=== PATIENT | female | born 1990 | race Caucasian/White ===

== ENCOUNTER 2018-03-23 11:06 | Day surgery (SDC) | payer BC ==
[~2018-03-23] VITALS: Ht 162.6 cm; Wt 78.6 kg
[2018-03-23] VITALS (21 sets, daily range): BP systolic 112–139; BP diastolic 65–90; PULSE 72–92; RESP 13–27; Ht 162.6 cm; Wt 78.6 kg
[~2018-03-23 11:06] MED LIST: CLINDAMYCIN 600 MG/D5W (PMX) 50 ML IVPB SCH; ROCURONIUM 50 MG INJ ONE; SOD CHLORIDE 0.9% 1,000 ML IV ONE
--- NOTE | 2018-03-23 12:25 | NUR ---
PT COMMUNICATES THAT SHE USUALLY GET A 'SHOT' AFTER SURGERY BECAUSE SHE IS RH NEGATIVE. WILL NOTIFY PER MOTHER'S REQUEST.
[2018-03-23] MEDS ORDERED: BUPIVACAINE 0.5%/EPI (SDV) 30 ML INJ ONE (13:50)
--- NOTE | 2018-03-23 14:08 | PREAC ---
Date/Time of Note Date/Time of Note DATE: 03/23/18 TIME: 14:07 Anesthesia Eval and Record Evaluation Time Pre-Procedure Interview DATE: 03/23/18 TIME: 14:07 Age 27 Sex female NPO: 8 hrs Preoperative diagnosis Ventral Hernia Planned procedure open Ventral hernia Repair Past Medical History Past Medical History: None Surgery & Anesthesia Issues No known issue Meds Anticoagulation: No Beta Matilde within 24 hr: No Reason Beta Matilde not given: Pt. not on B-Matilde Discontinued Reported Medications [None] No Conflict Check 10/04/11 Current Medications Clindamycin HCl/ Dextrose 50 ml @ 100 mls/hr PRE-OP IVPB ; Start 03/23/18 at 06:00; Stop 03/23/18 at 18:00 Sodium Chloride 1,000 ml @ 75 mls/hr [id number] ONCE IV ; Start 03/23/18 at 06:00; Stop 03/23/18 at 19:19 Meds reviewed: Yes Allergies Coded Allergies: Penicillins (Unverified Allergy, Severe, RASHES, 03/23/18) PER PT Allergies Reviewed: Yes Labs/Studies Labs Reviewed: Reviewed by anesthesiologist test: Negative Studies: ECG Pre-procedure Exam Last vitals Vital Signs Date Temp Pulse Resp B/P (MAP) Pulse Ox O2 O2 Flow FiO2 Time Delivery Rate 03/23/18 96.7 83 16 125/87 99 Room Air 11:24 (100) Airway: Adequate mouth opening, Adequate thyromental dist Mallampati: Mallampati II Teeth: Normal Lung: Normal Heart: Normal ASA Physical Status ASA physical status: 2 Emergency: None Planned Anesthetic General/MAC: LMA Planned Pain Management Parenteral pain med, Local by surgeon Pre-operative Attestations Prior to commencing anesthesia and surgery, the patient was re-evaluated, there was verification of: *The patient's identity *The results of appropriate recent lab work and preoperative vital signs *The above evaluation not changing prior to induction *Anesthetic plan, risk benefits, alternative and complications discussed with patient/family; questions answered; patient/family understands, accepts and wishes to proceed. DIPTI HERNANDEZ MD Mar 23, 2018 14:08
[2018-03-23] MEDS ORDERED: MIDAZOLAM 1 MG/ML 2 ML INJ ONE (14:21)
[2018-03-23] MEDS ORDERED: LIDOCAINE 2% (SDV) 5 ML INJ ONE (15:21)
[2018-03-23] MEDS ORDERED: PROPOFOL 20 ML ONE (15:21)
[2018-03-23] MEDS ORDERED: CEFAZOLIN 1 GM INJ ONE (15:21)
[2018-03-23] MEDS ORDERED: ONDANSETRON 4 MG INJ ONE (15:21)
[2018-03-23] MEDS ORDERED: KETOROLAC 30 MG INJ IV PRN (15:30)
[2018-03-23] MEDS ORDERED: IBUPROFEN 600 MG TAB PO PRN (15:30)
[2018-03-23] MEDS ORDERED: HYDROCODONE/APAP (5/325) TAB PO PRN ×2 (15:30)
[2018-03-23] MEDS ORDERED: ONDANSETRON 4 MG INJ IV PRN ×2 (15:30→16:00)
--- NOTE | 2018-03-23 15:32 | OPR ---
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 She had clinical signs and symptoms of a ventral/umbilical hernia. She was scheduled for elective repair to prevent sequelae of hernia disease which include, but are not limited to: Incarceration and strangulation. All risks and benefits of the procedure including, but not limited to: Wound infection, excessive bleeding, postoperative seroma/hematoma formation, injury to intra-abdominal organs, hernia recurrence, chronic pain, etc. were all explained to the patient in full detail. Patient fully understood and wished to proceed with the procedure. Informed consent was obtained. Procedure Description Patient was brought to the operating room and placed supine on the operating t able. Bilateral sequential compression devices were placed on both lower extremities. A dose of broad-spectrum perioperative intravenous antibiotics was given. After the induction of smooth general anesthesia the patient's abdomen was prepped and draped in standard surgical fashion. After performance of the surgical timeout 0.5% Marcaine with epinephrine was injected around the area of the incision. An infraumbilical semicircular incision was then made using a 15 blade scalpel. It was carried down through the skin and the dermis. Blunt dissection was then done using Elif clamps to the level of the anterior rectus fascia. The hernia of the ventral abdominal wall involved the umbilicus. Therefore, the umbilicus was then encircled using a Elif clamp. A fat- containing umbilical/ventral hernia was identified. The umbilicus was then transected at its base and the sac dissected off of the umbilicus. The hernia contents were transected and passed off the field as specimen. A small Ethicon proceed ventral hernia patch was then used to repair the hernia defect. Its tails were secured to the fascia using interrupted 2-0 Novafil sutures. The mesh was soaked in antibiotic irrigation prior to insertion into the field. With the repair complete it was inspected and noted to be tension-free and hemostatic. The wound cavity was then irrigated with more antibiotic irrigation. The fascia was then reapproximated over the mesh using a #1 PDS suture in [id number] fashion. The umbilicus was then tacked back down to the fascia using interrupted 3-0 Vicryl suture. Incision was then closed in layers using interrupted 3-0 Vicryl sutures for the dermal layer. The skin was reapproximated using a running 4-0 Monocryl suture in subcuticular fashion. Incision was cleaned and Dermabond was applied. The patient was awoken from anesthesia and transported to the recovery room in stable condition. All counts were correct at the end of the case 2. MICHAEL GRAHAM MD Mar 23, 2018 15:32
--- NOTE | 2018-03-23 15:45 | PAC ---
Date/Time of Note Date/Time of Note DATE: 03/23/18 TIME: 15:44 Post-Anesthesia Notes Post-Anesthesia Note Last documented vital signs Vital Signs Date Temp Pulse Resp B/P (MAP) Pulse Ox O2 O2 Flow FiO2 Time Delivery Rate 03/23/18 96.7 83 16 125/87 99 Room Air 11:24 (100) Activity: WNL Respiratory function: WNL Cardiovascular function: WNL Mental status: Baseline Pain reasonably controlled: Yes Hydration appropriate: Yes Nausea/Vomiting absent: Yes Comments BP:134/84, pulse:82, spo2:100%, T:98,8, DIPTI HERNANDEZ MD Mar 23, 2018 15:45
[2018-03-23] MEDS ORDERED: HYDROmorphONE 1 MG/5 ML IV SYRINGE IV PRN (16:00)
[2018-03-23] MEDS ORDERED: MEPERIDINE 25 MG INJ IV PRN (16:00)
[2018-03-23] MEDS ORDERED: FENTAnyl 50 MCG/ML VIAL IV PRN (16:00)
[2018-03-23] MEDS ORDERED: METOCLOPRAMIDE 10 MG INJ IV PRN (16:00)
[2018-03-23] MEDS ORDERED: DIPHENHYDRAMINE 50 MG INJ IV PRN (16:00)
[2018-03-23] MEDS: HYDROmorphONE 1 MG/5 ML IV SYRINGE IV PRN ×2 (16:04→16:25)
--- NOTE | 2018-03-23 16:55 | NUR ---
pacu PT AWAKE ALERT ROOM AIR NO RESP DISTRESS NO C/O PAIN ABDOMINAL DSSG DRY INTACT WITH BINDER RT HAND 20 ADWOA IV ACCESS SITE CLEAR MOM WAS NOTIFIED REPORT GIVEN TO DANISH RATLIFF
--- NOTE | 2018-03-23 18:06 | NUR ---
SDS: PATIENT D/C HOME IN STABLE CONDITION, VS WITHIN NORMAL LIMITS, NO PAIN OR DISCOMFORT REPORTED. ALL D/C INSTRUCTIONS PROVIDED TO PATIENT AND FAMILY. THEY VERBALIZED UNDERSTANDING AND READINESS TO GO HOME. NO BLEEDING AT INCISION SITE.
== END 2018-03-23 18:22 | disposition home or self-care (01) ==
LOC: SDS 11:06
PROVIDERS: ATTEND Surgery
DX: K42.9 Umbilical hernia without obstruction or gangrene (principal); K43.9 Ventral hernia without obstruction or gangrene
CPT/HCPCS: 49585; 88302; J0690; J1170; J2175; J2250; J2405; J3010; Z7610; 84703; C1781